=== PATIENT | male | born 1990 | race Hispanic/Latino ===

== ENCOUNTER 2017-12-01 22:10 | Emergency (ER) | payer BC ==
[2017-12-01 22:17] VITALS: O2SAT 100
[2017-12-01] MEDS ORDERED: Oxycodone/Acetaminophen 5/325 mg Tab PO STA (23:27)
--- NOTE | 2017-12-01 23:53 | ED PDOC ---
Lower Extremity Pain/Injury Time Seen by Provider: 12/01/17 22:24 Chief Complaint (Nursing): Lower Extremity Problem/Injury Chief Complaint (Provider): Ankle Pain History Per: Patient History/Exam Limitations: no limitations Onset/Duration Of Symptoms: Hrs (since 930pm) Current Symptoms Are (Timing): Still Present Pain Scale Rating Of: 6 Additional Complaint(s): Patient is a 27 year old male who presents to ED accompanied by his girlfriend for evaluation of ankle injury. Patient reports he was playing [employer] around 930pm when he felt a sudden pop in the back of his right ankle/ calf when he planted his foot to start running, causing him to fall to the ground in immediate pain. Patient denies any prior ankle injury and denies taking any medications [employer] for symptoms. Patient reports he has not tried to ambulate since this occurred secondary to pain. Patient denies any other injury and has no other complaints at this time besides pain localized to the back of his right ankle and lower calf. PMD: Melida Past Medical History Reviewed: Historical Data, Nursing Documentation, Vital Signs Vital Signs: Last Vital Signs Temp 99.2 F 12/01/17 22:14 Pulse 94 H 12/01/17 22:14 Resp 18 12/01/17 22:14 BP 126/78 12/01/17 22:14 Pulse Ox 100 12/01/17 22:14 - Medical History PMH: Asthma (exercise induced) - Surgical History Surgical History: Hernia Repair - Family History Family History: States: Unknown Family Hx - Social History Current smoker - smoking cessation education provided: No Alcohol: Social Drugs: Cannabis (3x/week) - Allergies Allergies/Adverse Reactions: Allergies Allergy/AdvReac Type Severity Reaction Status Date / Time No Known Allergies Allergy Verified 12/01/17 22:13 Review of Systems ROS Statement: Except As Marked, All Systems Reviewed And Found Negative Musculoskeletal: Positive for: Leg Pain Physical Exam - Reviewed Nursing Documentation Reviewed: Yes Vital Signs Reviewed: Yes - Physical Exam Appears: Positive for: Well, Non-toxic, No Acute Distress Head Exam: Positive for: ATRAUMATIC, NORMOCEPHALIC Skin: Positive for: Warm, Dry Eye Exam: Positive for: EOMI, PERRL Neck: Positive for: Painless ROM, Supple Cardiovascular/Chest: Positive for: Regular Rate, Rhythm Respiratory: Positive for: Normal Breath Sounds. Negative for: Decreased Breath Sounds, Accessory Muscle Use, Respiratory Distress Gastrointestinal/Abdominal: Positive for: Soft. Negative for: Tenderness, Distended, Guarding Back: Negative for: Vertebral Tenderness Extremity: Positive for: Tenderness (to posterior right ankle and distal calf), Calf Tenderness (to distal right calf), Swelling (to posterior aspect of right ankle), Other (Patient cannot plantar flex the affected foot. Dorsiflexion mildly decreased. (+) Camacho (-) NV deficit). Negative for: Pedal Edema ((-) ecchymosis, (-)skin break (-) distal NV deficit), Deformity Neurologic/Psych: Positive for: Alert, Oriented (x3) - ECG O2 Sat by Pulse Oximetry: 100 (RA) Pulse Ox Interpretation: Normal Medical Decision Making Medical Decision Makin Clinical Impression: Achilles Tendon Rupture Plan: -Toradol IM -Percocet PO -Podiatry consult [address] Ivey, podiatry resident. Pertinent details reviewed, recommends plain films of ankle to r/o fracture. Will see patient in ED. XR right ankle ordered. 235 Podiatry at bedside. 0018 Patient in XR. 0035 Ankle XR reviewed: (-) fracture (-) dislocation Patient advised that official radiology read of XR is still pending and will call the patient if there is any discrepancy within 24 hours. Patient placed in posterior short leg splint by podiatry resident (Dr Ivey). NV intact after placement. Provided with crutches and instructed on crutch walking. On re-evaluation, patient reports improvement of symptoms. On exam, patient remains AAOx3, in no acute distress. On exam, neck is supple, lungs CTA, cardiac RRR, abdomen is soft and non-tender, neuro exam shows no focal findings. RICE encouraged. Educated on splint care. Diagnostic results d/w the patient in great detail. Dx of achilles rupture d/w the patient. Based on history, exam and diagnostic results plan will be for discharge and outpatient follow up with podiatry (Dr Goins) for MRI and surgical evaluation. Advised to follow up with primary care physician in 1-2 days without fail. Advised to take 800mg Ibuprofen as needed for pain TID. Return to the emergency room at any time for any new or worsening symptoms. Patient states he fully agrees with and understands discharge instructions. States that he agrees with the plan and disposition. Verbalized and repeated discharge instructions and plan. I have given the patient opportunity to ask any additional questions. Disposition - Clinical Impression Clinical Impression: Achilles tendon rupture, Ankle pain - Patient ED Disposition Is Patient to be Admitted: No Counseled Patient/Family Regarding: Studies Performed, Diagnosis, Need For Followup, Rx Given - Disposition Referrals: Kaushik Goins DPM [Staff Provider] - Disposition: Routine/Home Disposition Time: 00:44 Condition: FAIR Instructions: Achilles Tendon Rupture Forms: [facility] [employer] (Romansh) Print Language: CUBAN - POA Present On Arrival: None
--- NOTE | 2017-12-02 00:24 | CP.PCM.CON ---
History of Present Illness - History of Present Illness History of Present Illness: Podiatry Consult Note- Dr. Goins 27 y.o male with no PMH seen in the ED for right achilles tendon pain. Patient reports that at 9:30PM today as he was playing football, he heard a loud pop to the back of his heels. He reports the pain being 6/10 and describes the pain as being a throbbing pain with tingling. Patient reports pain medication given has helped with the pain. Pain does not radiate. Reports trouble walking and inability to bear wear without pain. Denies nausea, fever, shortness of breath, chest pain, chills or f. Denies calf pain or tenderness. PMH: none PSH: umbilical hernia repair, denies problems with anesthesia ALL: NKDA MEDS: vitamins SH: socially drinks, marijuana 3x/week, denies smoking or drinking EtOH FH: none Past Patient History - Past Social History Alcohol: Social Drugs: Cannabis (3x/week) - PULMONARY Hx Asthma: Yes (exercise induced) - PSYCHIATRIC Hx Substance Use: No Meds Allergies/Adverse Reactions: Allergies Allergy/AdvReac Type Severity Reaction Status Date / Time No Known Allergies Allergy Verified 12/01/17 22:13 Physical Exam - Constitutional Appears: Well, Non-toxic, No Acute Distress - Extremities Exam Extremities exam: Negative for: calf tenderness Additional comments: Vasc: DP and PT 2/4 bilaterally, CFT < 3 seconds x 10 digits, Temperature gradient WNL, mild edema noted to R LE Ortho: Pain with palpation to the distal achilles tendon along the route of it' s insertion, dupont test postive, no active ROM, unable to plantarflex, able to dorsiflex right ankle- limited secondary to guarding, integrity of achilles tendon compromised with palpable defect noted to the distal posterior ankle Neuro: protective and gross sensation intact Derm: no open lesions, no ecchymosis noted - Neurological Exam Neurological exam: Alert, Oriented x3 Results - Vital Signs Recent Vital Signs: Last Vital Signs Temp 99.2 F 12/01/17 22:14 Pulse 94 H 12/01/17 22:14 Resp 18 12/01/17 22:14 BP 126/78 12/01/17 22:14 Pulse Ox 100 12/02/17 00:22 Assessment & Plan - Assessment and Plan (Free Text) Assessment: 27 y.o male with no PMH seen with history and clinical exam most consistent with right achilles tendon rupture Plan: Patient examined and evaluated Discussed plan in detail with attending Dr. Goins X-rays reviewed- no bony fractures noted, obliterans of the Kager's triangle noted Instructed on RICE protocol OTC for pain Applied Modified Adams Compression with posterior splint NWB in posterior splint with crutches Keep dressing c/d/i Patient reports going on plane tomorrow; recommends taking aspirin F/U in podiatry clinic in [address] Goins Will call for an appointment within 1 week Thank you for allowing us to take part in patient's care
[2017-12-02 01:16] VITALS: BP 123/76; PULSE 79; RESP 17; TEMP 98.1
--- NOTE | 2017-12-02 09:07 | RAD ---
PROCEDURE: Right Ankle Radiographs. HISTORY: football injury, likely achilles rupture COMPARISON: None FINDINGS: BONES: No acute fracture or destructive bony lesion identified. JOINTS: No dislocation or subluxation. No osteoarthritis. Ankle mortise maintained. Talar dome intact SOFT TISSUES: Limited soft tissue edema is seen anterior to the mid Achilles tendon. OTHER FINDINGS: None. IMPRESSION: No bony pathology grossly evident. Limited soft tissue edema seen anterior to the mid patellar tendon. Clinically correlate further. MRI may be useful for follow-up of soft tissues as clinically warranted.
== END 2017-12-02 00:50 | disposition home or self-care (01) ==
LOC: H.ER 22:10
DX: S86.011A Strain of right Achilles tendon, initial encounter (principal); X50.9XXA Other and unspecified overexertion or strenuous movements or postures, initial encounter; Y93.61 Activity, american tackle football; J45.909 Unspecified asthma, uncomplicated
CPT/HCPCS: 29515; 73610; 96372; 99285; J1885

== ENCOUNTER 2017-12-27 10:35 | Day surgery (SDC) | payer BC ==
[2017-12-19 13:39] VITALS: BMI 25.8
[~2017-12-27 10:35] MED LIST: Lactated Ringer's 1,000 ML IV ONE
--- NOTE | 2017-12-27 11:53 | CP.PCM.PN ---
Subjective - Date & Time of Evaluation Date of Evaluation: 12/27/17 Time of Evaluation: 11:51 - Subjective Subjective: 27 year old male seen preoperatively in [facility] before right achilles tendon repair with Dr. Leigh. Patient is AAO x 3 and NAD resting comfortably in bed at time of visit. States that he has been NWB to right foot since injury occurred. States that he is in no pain at this time. States that he has been NPO since 6: 30 last night. Denies any further pedal complaints at this time. Denies any recent N/V/F/C/CP/SOB/D/posterior calf pain when squeezed. Objective - Vital Signs/Intake and Output Vital Signs (last 24 hours): Temp Pulse Resp BP Pulse Ox 98.1 F 74 18 126/73 100 12/27/17 11:00 12/27/17 11:00 12/27/17 11:00 12/27/17 11:00 12/27/17 11:00 - Constitutional Appears: Well, Non-toxic, No Acute Distress - Extremities Exam Additional comments: Posterior splint C/D/I to right foot CFT < 3 seconds to all digits Patient able to wiggle all toes without incident - Neurological Exam Neurological Exam: Alert, Awake, Oriented x3 - Psychiatric Exam Psychiatric exam: Normal Affect, Normal Mood Assessment and Plan - Assessment and Plan (Free Text) Assessment: 27 year old male seen preoperatively in [facility] before right achilles tendon repair with Dr. Leigh Plan: Pt was seen and examined in [facility] Pt NPO status was confirmed All Pre-op testing and clearance was in the chart Pt has exhausted all conservative treatment at this time and is opting for surgical intervention Pt was explained procedure and post-operative course All pt's questions were answered to satisfaction No guarantees were made Pt understands all risks, benefits and complications of procedure Pt will follow-up with Dr. Leigh
[2017-12-27] MEDS ORDERED: Lidocaine 1% Inj (20ml) IJ ONE (11:56)
[2017-12-27] MEDS ORDERED: Bupivacaine 0.5% Inj(30mL) IJ ONE (11:56)
[2017-12-27] MEDS ORDERED: ceFAZolin 1 GM in Sodium Chloride 0.9% 100 ML IVPB ONE (11:56)
--- NOTE | 2017-12-27 11:58 | CP.SDSHP ---
Same Day Surgery H & P - History Proposed Procedure: Repair of achilles tendon R foot Pre-Op Diagnosis: Rupture of achilles tendon, R leg - Previous Medical/Surgical History Pain: 0. No Pain - Allergies Allergies: Allergies No Known Allergies Allergy (Verified 12/01/17 22:13) - Physical Exam Vital Signs: Vital Signs 12/27/17 11:00 Temperature 98.1 F Pulse Rate 74 Respiratory 18 Rate Blood Pressure 126/73 O2 Sat by Pulse 100 Oximetry Mental Status: Alert & Oriented x3 - Impression Pt. Evaluated Today:Candidate for Anesthesia & Procedure: Yes - Date & Time Date: 12/27/17 Time: 11:58 Short Stay Discharge - Short Stay Discharge Admitting Diagnosis/Reason for Visit: S86.011A Disposition: HOME/ ROUTINE Referrals: FAMILY PROVIDER,NO [Primary Care Provider] -
[2017-12-27] MEDS ORDERED: Sodium Chloride 0.9% 1,000 ML IV SCH (12:00)
[2017-12-27] MEDS ORDERED: Lidocaine 2% Inj (20ml) ONE (12:15)
[2017-12-27] MEDS ORDERED: Propofol 10 mg/ml Inj (20 ML) ONE (12:17)
[2017-12-27] MEDS ORDERED: Succinylcholine 200 mg/10 ml Inj IV ONE (12:18)
[2017-12-27] MEDS ORDERED: Rocuronium 10 mg/ml (5 ml) ONE (12:18)
[2017-12-27] MEDS ORDERED: Midazolam 2 MG/2 ML VIAL ONE (12:18)
[2017-12-27] MEDS ORDERED: Ropivacaine 0.5% 30ML IV ONE (12:46)
[2017-12-27] MEDS ORDERED: Sevoflurane - Inhalation Anesthetic Liq (250 ml) ONE (14:51)
--- NOTE | 2017-12-27 14:53 | PCM.ANESB2 ---
Popliteal Nerve Block - Popliteal Nerve Block Date of Procedure: 12/27/17 Procedure Performed: Popliteal Nerve Block Right - Procedure Popliteal Nerve Block: This procedure was explained to the patient that it is for post-operative pain management. Consent was obtained after a thorough discussion with the patient regarding the benefits and possible complications of local anesthetic block of the sciatic nerve at the popliteal level. The patient was brought to the operating room and standard monitors are applied. Time-out was held with the circulating nurse to confirm the correct surgery and the appropriate block. The patient was positioned prone. The ultrasound transducer was then applied to the posterior thigh approximately 8cm above the popliteal crease in the transverse plane and the sciatic nerve before its division was visualized lateral to the popliteal artery and in between the bicep femoris and semimembranosus/ semitendinosus muscles. After identification, the lateral portion of the thigh was prepped with chloroprep solution. At this point, a # 21 gauge Stimuplex insulated 4 inch needle was inserted into pre-marked area and advanced in a perpendicular direction. The needle was inserted below the ultrasound transducer in-plane towards the sciatic nerve in a [id number] direction. Needle advancement was performed carefully under direct ultrasound visualization. Nerve stimulator was used and dorsiflexion of the __right___ foot was elicited at a current of __0.4___ MA. After repeated negative aspiration, __5___cc of __ropivacaine 0.5___ % was injected and this was flowed with _20 cc of ___ropivacaine 0.5___% ___. Under ultrasound guidance the local anesthetics were observed surrounding sciatic nerve . The needle was removed intact. The patient tolerated the popliteal nerve block well with stable vital signs and was subsequently prepared for the surgery.
[2017-12-27] MEDS ORDERED: Bupivacaine 0.5% 50 ML IJ ONE (15:02)
[2017-12-27] MEDS ORDERED: Neostigmine 1:1000 (1 mg/ml) Inj ONE (15:18)
[2017-12-27] MEDS ORDERED: Lactated Ringer's 1,000 ML IV SCH (15:30)
[2017-12-27] MEDS ORDERED: Lactated Ringer's 1,000 ML IV PRN (15:30)
--- NOTE | 2017-12-27 15:31 | PCM.SURG1 ---
Surgeon's Initial Post Op Note - Surgeon's Notes Surgeon: Dr. Leigh DPM Electrophysiology Nurse Practitioner: Dr. Cisco Waddell DPM PGY-3, Dr. Norton DPM PGY-3, Dr. Clemente DPM PGY-3 Type of Anesthesia: General Endo Anesthesia Administered By: Dr. Goldberg Pre-Operative Diagnosis: right ankle/leg complete Achilles tendon rupture Operative Findings: see dictation. intra-operative injectables: 10cc of .5 cc of marcaine plain. materials: 2-0 fiberwire, 3-0 fiberwire, 2-0 vicryl, 3-0 vicryl, 4-0 vicryl, 4-0 monocril, 2 3.0 suture jorje, 1 arthroflex graft 4 cm x 7 cm Post-Operative Diagnosis: same Operation Performed: 1. right lower extremity repair of achilles. 2. application of Arthroflex graft. 3. PRP injection Specimen/Specimens Removed: none Estimated Blood Loss: EBL {In ML}: 5 Blood Products Given: N/A Drains Used: No Drains Post-Op Condition: Good Date of Surgery/Procedure: 12/27/17 Time of Surgery/Procedure: 12:50
[2017-12-27] MEDS ORDERED: Oxycodone/Acetaminophen 5/325 mg Tab PO PRN ×2 (15:34)
[2017-12-27 16:27] VITALS: RESP 18
[2017-12-27 17:22] VITALS: O2SAT 99
[2017-12-27] MEDS ORDERED: Oxycodone/Acetaminophen 5/325 mg Tab PO ONE (17:35)
[2017-12-27 18:44] VITALS: BP 118/72; PULSE 81; TEMP 98.2
--- NOTE | 2017-12-28 05:47 | OP ---
PROCEDURE DATE: 12/27/2017 PREOPERATIVE DIAGNOSIS: Right ankle chronic Achillis tendon rupture. POSTOPERATIVE DIAGNOSIS: Right ankle chronic Achillis tendon rupture. NAME OF PROCEDURE: 1. Right ankle Achillis tendon repair using Arthrex SutureTak and ArthroFLEX and graft application. 2. Right ankle platelet-rich plasma autologous graft injection. SURGEON: Bong Leigh DPM ASSISTANTS: 1. Cisco Waddell DPM, PGY 3. 2. Leisa Ruiz DPM, PGY 3. 3. Anand Dickerson DPM, PGY-3. TYPE OF ANESTHESIA: General LMA with popliteal block. ANESTHESIA ADMINISTERED BY: Dr. Goldberg. INDICATIONS: The patient is a 27 year old male who sustained a right ankle Achilles tendon rupture while playing flag football on 12/01/2017. The patient presented to the [facility] the same evening and was placed in a posterior splint. His right ankle MRI revealed a complete rupture of the Achillis tendon approximately 4 cm proximal to his calcaneal insertion with above 1.8 mm proximal retraction of the tendon. The patient now presents for a surgical intervention. The patient signed the consent after careful explanation of risks, benefits, complications, and alternatives for surgical procedure. No guarantees were given nor implied. A 2 g of IV Ancef was given to the patient prior to the procedure. The patient's n.p.o. status was confirmed prior to taking the patient to the OR. PREPARATION: The patient was brought to the operating room and placed on the operating room table in prone position. Time-out was performed for identification of the correct patient and the correct procedure. Upon induction of general anesthesia, a well-padded pneumatic thigh tourniquet was applied to the patient's right thigh. The right lower extremity was then prepped and draped in usual sterile manner. Esmarch was then utilized to exsanguinate the patient's right lower extremity. Pneumatic thigh tourniquet was then inflated to 350 mmHg and the procedure began. DESCRIPTION OF PROCEDURE: Procedure #1. Right ankle Achillis tendon repair using Arthrex 3.0 SutureTak and ArthroFLEX graft application. Attention was directed to the posterior aspect of the patient's right ankle where a palpable defect was noted within the distal aspect of the Achillis tendon approximately 4 cm proximal to the tendon insertion. Using a #15 blade at approximately 15 cm linear longitudinal incision was created within the central aspect of the distal Achillis tendon. The incision was deepened to the subcutaneous tissues using sharp and blunt dissection. Care was taken to identify and retract all vital neurovascular structures. All bleeders were then cauterized and ligated as needed. The incision was then deepened down bluntly to the level of the peritenon using a fresh #15 blade, a linear longitudinal incision was created through the peritenon to expose the Achillis tendon. The peritenon was then resected from the mediolateral aspect to the Achillis tendon carefully to adequately exposed the tendon for repair. The rupture site was noted to be partially healed with fibrous tissue formation. Using a fresh #15 blade, this rupture site was tenotomized. Both the distal and proximal stumps of the tendons were now carefully palpated and calcific deposits were felt within the distal stump of the tendon. Using #15 blade, the distal stump of the tendon was split into two equal sections to allow for debulking and excision of the calcific portion of the tendon. Once this was complete, a mediolateral aspect of the calcaneus near the Achillis insertion sites were drilled for insertion of the Arthrex 3.0 mm SutureTak. Once the SutureTak were implanted into the posterior calcaneal tuberosity both medially and laterally, the sutures were then through the distal and proximal aspect of the Achillis stump in a crisscross pattern. The respective suture ends were then tied to one another. Once this was complete, the sutures were used once again to reinforce the repair via a leading technique both distally and proximally to the rupture site. Next, #2 FiberWire was used to reapproximate the distal aspect of the tendon, which was previously split in half. Next, the Arthrex ArthroFLEX graft measuring 4 cm x 7 cm was obtained and placed over the rupture site. The graft was then affixed to the tendon across the rupture site using #2 FiberWire. This effectively allowed for repair of the tendon with graft supplementation. The ankle was then put through range of motion and the integrity of the tendon repair was confirmed and was noted to be excellent upon dorsiflexion of the ankle. At this time, the peritenon was reapproximated and coapted using 3 0 Vicryl. The subcutaneous tissues were reapproximate and coapted using 4 0 Vicryl. The skin was then reapproximated and coapted using 4 0 Monocryl via a running subcuticular fashion. Steri Strips were now placed over the incision site. A 10 mL of 0.5% Marcaine plain were then used to block the saphenous nerve. The right ankle was then dressed with moist 4 x 4 gauze, dry 4 x 4 gauze, and Kerlix. A well padded below knee fiberglass cast was then applied to the right lower extremity to maintain physiologic attention of the repair the Achilles tendon. The cast was then bivalved to accommodate for any postoperative edema and also for comfort. The attending Dr. Leigh was present throughout the entire case. POSTOPERATIVE CONDITION: The patient tolerated the anesthesia and procedure well with no complication. The patient was escorted to the recovery room with vital signs stable and neurovascular status intact to the right lower extremity. The patient was instructed to remain nonweightbearing to the right lower extremity with crutches. He was given prescriptions for pain medication, oral antibiotics, and Lovenox by Dr. Leigh. He is to follow up with Dr. Leigh at the [facility] on an outpatient basis in 2 weeks. Cisco Waddell DPM Bong Leigh DPM
== END 2017-12-27 18:40 | disposition home or self-care (01) ==
LOC: H.OPSURG 10:35
PROVIDERS: ATTEND Podiatrist
DX: S86.011A Strain of right Achilles tendon, initial encounter (principal); X58.XXXA Exposure to other specified factors, initial encounter
CPT/HCPCS: 0232T; 27650; J0330; J0690; J2001; J2250; J2704; J2710; J3010; J7120